=== PATIENT | male | born 1985 | race Two or more races ===

== ENCOUNTER 2024-06-28 05:39 | Emergency (ER) | payer OTHER ==
[~2024-06-28] VITALS: Ht 170.2 cm; Wt 83.0 kg
[2024-06-28] MEDS ORDERED: BUPROPION XL300 MG PO (05:49)
[2024-06-28] MEDS ORDERED: DESCOVY 120-151 EACH PO (05:49)
[2024-06-28] MEDS ORDERED: ZESTRIL20 MG PO (05:49)
[2024-06-28] MEDS ORDERED: KETOROLAC TROMETHAMINE 30 MG VIAL IV ONE (06:15)
[2024-06-28] MEDS ORDERED: CEFTRIAXONE SODIUM 1,000 MG VIAL IV ONE (06:15)
[2024-06-28] MEDS ORDERED: METHYLPREDNISOLONE SOD SUCC 125 MG VIAL IV ONE (06:15)
[2024-06-28 07:21] LABS: HEMATOCRIT 39.4 % (39.0-48.0); HEMOGLOBIN 13.4 g/dL (13-16.00); MEAN CELL VOLUME 95.8 fL (80.0-100.00); MEAN CORPUSCULAR HEMOGLOBIN 32.6 pg (27.00-32.0); MEAN CORPUSCULAR HGB CONC 34.1 g/dl (32.0-36.0); PLATELET COUNT 158 K/uL (150-450); RED BLOOD COUNT 4.11 M/uL (4.00-6.00); RED CELL DISTRIBUTION WIDTH 11.8 % (11.5-14.5)
[2024-06-28] MEDS ORDERED: ZITHROMAX500 MG PO (07:57)
[2024-06-28] MEDS ORDERED: DICLOFENAC SODI75 MG PO (07:57)
== END 2024-06-28 08:42 | disposition home or self-care (01) ==
LOC: ER 05:40
PROVIDERS: General Practice
DX: J02.9 Acute pharyngitis, unspecified (principal); Z20.822 Contact with and (suspected) exposure to COVID-19; I10 Essential (primary) hypertension